=== PATIENT | male | born 1995 | race Caucasian/White ===

== ENCOUNTER 2018-12-10 11:19 | Day surgery (SDC) | payer OTHER ==
[2018-12-10] MEDS ORDERED: LACTATED RINGERS 1,000 ML IV ONE (12:09)
[2018-12-10] MEDS ORDERED: fentaNYL 250 MCG/5 ML VIAL IVP ONE (13:08)
[2018-12-10] MEDS ORDERED: MIDAZOLAM 2 MG/2 ML VIAL IVP ONE (13:08)
[2018-12-10 14:05] VITALS: BP 114/59
== END 2018-12-10 11:20 | disposition home or self-care (01) ==
LOC: SDS 11:19
PROVIDERS: ATTEND Internal Medicine
PROC: 0DBF8ZX Excision of Right Large Intestine, Via Natural or Artificial Opening Endoscopic, Diagnostic (ICD-10-PCS; principal; 2018-12-10 12:30)
DX: R19.7 Diarrhea, unspecified (principal); R14.3 Flatulence; R14.0 Abdominal distension (gaseous); Z12.11 Encounter for screening for malignant neoplasm of colon
CPT/HCPCS: 45380; J3010; J7120

== ENCOUNTER 2019-08-15 21:43 | Emergency (ER) | payer OTHER ==
--- NOTE | 2019-08-15 22:44 | ED Physician Documentation ---
History of Present Illness - Stated complaint Stated Complaint: LUNG PX - Chief complaint Chief Complaint: Resp - History obtained from History obtained from: Patient - History of Present Illness Timing: How many hours ago (2) Pain level now: 4 Improved by: nothing Worsened by: inspiration - Additonal information Additional information: cough x 2-3 days, productive at times but mostly nonproductive. approximately 2 hours [employer], patient coughed and had sudden sharp right-sided chest pain. pain is pleuritic. He has intermittent shortness of breath, but this is no different than past 2-3 days Review of Systems Constitutional: reports: Chills. denies: Fever, Sweats Cardiac: reports: Chest pain / pressure. denies: Palpitations, Pedal edema, Calf pain Respiratory: reports: Dyspnea (intermittent x 2-3 days, denies at time of this H+P), Cough. denies: Hemoptysis, Wheezing Musculoskeletal: denies: Extremity swelling PD PAST MEDICAL HISTORY - Past Medical History Past Medical History: No Cardiovascular: None Respiratory: None Endocrine/Autoimmune: None GI: GERD : None HEENT: None Psych: None Musculoskeletal: None Derm: None - Past Surgical History Past Surgical History: Yes General: Colonoscopy - Present Medications Home Medications: Ambulatory Orders Medication Instructions Recorded Confirmed No Known Home Medications 12/10/18 08/15/19 - Allergies Allergies/Adverse Reactions: Allergies Allergy/AdvReac Type Severity Reaction Status Date / Time No Known Drug Allergies Allergy Verified 08/15/19 22:07 - Social History Does the pt smoke?: No Smoking Status: Never smoker Does the pt drink ETOH?: No Does the pt have substance abuse?: No - Immunizations Immunizations are current?: Yes - POLST Patient has POLST: No PD ED PE NORMAL - Vitals Vital signs reviewed: Yes - General General: Alert and oriented X 3, No acute distress, Well developed/nourished - Cardiac Cardiac: RRR, No murmur, No gallop, No rub - Respiratory Respiratory: No respiratory distress, Clear bilaterally - Abdomen Abdomen: Soft, Non tender - Extremities Extremities: No edema Results - Vitals Vitals: Vital Signs - 24 hr 08/15/19 08/16/19 21:54 00:30 Temperature 37.3 C 36.5 C Heart Rate 70 56 L Respiratory 17 16 Rate Blood Pressure 141/72 H 134/66 H O2 Saturation 100 100 Oxygen O2 Source Room air - Rads (name of study) chest xray Radiology: Prelim report reviewed, See rad report PD MEDICAL DECISION MAKING - ED course Complexity details: reviewed results, re-evaluated patient, considered differential, d/w patient ED course: NAD during ED stay. Declines analgesics. Symptom onset coincided with when he was coughing and he fulfills all criteria of PERC rule. CXR is unremarkable. Suspect chest wall strain and URI/bronchitis. Departure - Departure Disposition: 01 Home, Self Care Clinical Impression: Strain of chest wall Qualifiers: Encounter type: initial encounter Qualified Code(s): S29.011A - Strain of muscle and tendon of front wall of thorax, initial encounter Condition: Good Instructions: ED Chest Pain Atypical Unkn Cause Follow-Up: Valerie Aviles ARNP [Primary Care Provider] - Discharge Date/Time: 08/16/19 00:34
--- NOTE | 2019-08-15 23:35 | XRAY Report ---
Reason: right chest pain Procedure Date: 08/15/2019 Accession Number: [id number] / [id number] Procedure: XR - Chest 2 View X-Ray CPT Code: 86399 FULL RESULT: EXAM: CHEST RADIOGRAPHY EXAM DATE: 08/15/2019 11:14 PM. CLINICAL HISTORY: Right chest pain after coughing. Difficulty taking a deep breath. COMPARISON: None. TECHNIQUE: 2 views. FINDINGS: Lungs/Pleura: No alveolar consolidation or pleural effusion seen. No pneumothorax. Mediastinum: Heart and mediastinal contours are unremarkable. Other: None. IMPRESSION: 1. No acute abnormality seen in the chest. RADIA
[2019-08-16 00:34] VITALS: BP 134/66
== END 2019-08-16 00:34 | disposition home or self-care (01) ==
LOC: ED 21:43
DX: S29.011A Strain of muscle and tendon of front wall of thorax, initial encounter (principal)
CPT/HCPCS: 71046; 99282; 99283

== ENCOUNTER 2021-06-12 14:51 | Outpatient (CLI) | payer OTHER ==
[2021-06-12 16:37] VITALS: BP 100/50
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
== END 2021-06-12 14:52 | disposition home or self-care (01) ==
LOC: SC 14:51
PROVIDERS: ATTEND Internal Medicine Pulmonary Disease
DX: R06.83 Snoring (principal); G47.8 Other sleep disorders; G47.10 Hypersomnia, unspecified
CPT/HCPCS: 99202; 99212

== ENCOUNTER 2021-06-26 12:19 | Outpatient (CLI) | payer OTHER | END 2021-06-26 12:20 | disposition home or self-care (01) | LOC: SC 12:19 | PROVIDERS: ATTEND Internal Medicine Pulmonary Disease | DX: R06.83 Snoring (principal); G47.8 Other sleep disorders; G47.10 Hypersomnia, unspecified | CPT/HCPCS: 95806 ==

== ENCOUNTER 2021-07-17 13:22 | Outpatient (CLI) | payer OTHER ==
--- NOTE | 2021-07-17 16:08 | SLEEP CARE CONSULTATION ---
Information from patient questionnaire entered by Arleth Maurer. I have reviewed and concur with the information entered by Arleth Maurer. This document represents the service I personally performed and the decisions made by me, Solo Greco MD, [facility]. History of Present Illness Service Date and Time: 07/17/2021 1322 Initial [place] Sleepiness Scale score: 11 (in 2020) Additional HPI information: HPI: Mr. Sims returned for follow up of the sleep study he had on 06/26/2021. The test showed no significant sleep disordered breathing (AHI was 1.5 and davion oxygen saturation, 92%). The patient slept mostly supine. According to him, he slept at least half of the time he had the testing device on. The patient was informed of these findings. I explained to him that the test was normal. His main complaint is sleep onset insomnia. Sleep Study - Results Type of Sleep Study: Home sleep study Prior sleep studies: No Review of Systems Review of systems same as previous: Yes Physical Exam Height: 6 ft Weight: 175 lb Body Mass Index: 23.7 BMI Classification: Healthy weight Impression and Plan IMPRESSION: 1. 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 The solution is to keep wakeup time the same for both week nights and weekends. PLAN: 1. Maintain a regular wake up time and spend no more than 8 hours in bed at night. Avoid naps. 2. Continue to follow up with his psychologist. 3. Return for a follow up on as needed basis. Follow up with: PCP Visit Type: Telehealth Video Video Type: VSee Time Spent with Patient (minutes): 15 Provider Statement: I spent 100% of the Telehealth Video Call with the patient with greater than 50% spent counseling the patient and coordination of care.
== END 2021-07-17 13:23 | disposition home or self-care (01) ==
LOC: SC 13:22
PROVIDERS: ATTEND Internal Medicine Pulmonary Disease
DX: G47.00 Insomnia, unspecified (principal)